=== PATIENT | female | born 1980 | race Caucasian/White ===

== ENCOUNTER 2016-07-22 15:20 | Inpatient (IN) | payer OTHER ==
[2016-07-22 16:56] LABS: Hematocrit 37 % (35-47); Hemoglobin 12.2 g/dl (12.0-16.0); Mean Corpuscular HGB Conc 33 g/dl (31-36); Mean Corpuscular Hemoglobin 28 pg (27-31); Mean Corpuscular Volume 86 fL (80-97); Mean Platelet Volume 9 um3 (7.4-10.4); Red Blood Count 4.32 10^6/ul (4.0-5.4); Red Cell Distribution Width 14 % (10.5-15); White Blood Count 15.1 10^3/ul (3.5-10.8)
[2016-07-22 17:01] LABS: Add Diff/Slide Review? Slide Review Added; Comments Flag Yes
[2016-07-22 17:11] LABS: Albumin 3.3 g/dL (3.2-5.2); BUN/Creatinine Ratio 13.6 (8-20); Calcium 8.8 mg/dL (8.6-10.3); EGFR African American 129.6 (>60); EGFR Non-African American 100.8 (>60); Globulin 2.9 g/dL (2-4); Total Bilirubin 0.4 mg/dL (0.2-1.0); Total Protein 6.2 g/dL (6.4-8.9); Uric Acid 4.3 mg/dL (2.3-6.6)
[2016-07-22 17:19] LABS: Potassium 3.7 mmol/L (3.5-5.0)
[2016-07-22] MEDS ORDERED: Misoprostol TAB* 100 MCG VAGINAL ONE (17:50)
[2016-07-22] MEDS ORDERED: Misoprostol TAB* 100 MCG ONE (22:03)
[2016-07-22] MEDS ORDERED: Misoprostol TAB* 100 MCG PO ONE (22:04)
[2016-07-23] MEDS ORDERED: Oxytocin in LR* 20 UNITS/1,000 ML BAG IVPB ONE (12:02)
[2016-07-23] MEDS ORDERED: Oxytocin in LR* 20 UNITS/1,000 ML BAG IVPB SCH ×2 (13:00→18:00)
[2016-07-23] MEDS ORDERED: OBEPIDURAL* 250 ML ONE (14:32)
[2016-07-23] MEDS ORDERED: Calcium Carbonate CHEW TAB* 500 MG (TUMS) PO PRN (15:40)
[2016-07-23] MEDS ORDERED: Calcium Carbonate CHEW TAB* 500 MG (TUMS) ONE (15:44)
[2016-07-23] MEDS ORDERED: Sodium Citrate/Citric Acid* 15 ML UDC PO PRN (15:48)
[2016-07-23] MEDS ORDERED: Famotidine TAB* 20 MG PO PRN (15:48)
[2016-07-23] MEDS ORDERED: Phenylephrine IV* 40 MCG/ML 10 ML SYRINGE IV PUSH PRN (15:48)
[2016-07-23] MEDS ORDERED: OBEPIDURAL* 250 ML EPIDURAL SCH (16:00)
[2016-07-23] MEDS ORDERED: Witch Hazel PAD* JAR TOPICAL PRN (17:16)
[2016-07-23] MEDS ORDERED: oxyCODONE/Acetamin 5/325 MG* TAB PO PRN (17:16)
[2016-07-23] MEDS ORDERED: Ibuprofen TAB* 600 MG PO PRN (17:16)
[2016-07-23] MEDS ORDERED: Dibucaine 1% 28.35 GM TUBE PR PRN (17:16)
[2016-07-23] MEDS ORDERED: Acetaminophen TAB* 325 MG PO PRN (17:16)
[2016-07-23] MEDS: Docusate CAP* 100 MG PO SCH (21:20)
[2016-07-24 06:37] LABS: Hematocrit 35 % (35-47); Hemoglobin 11.4 g/dl (12.0-16.0); Mean Corpuscular HGB Conc 33 g/dl (31-36); Mean Corpuscular Hemoglobin 29 pg (27-31); Mean Corpuscular Volume 87 fL (80-97); Mean Platelet Volume 9 um3 (7.4-10.4); Red Blood Count 3.98 10^6/ul (4.0-5.4); Red Cell Distribution Width 14 % (10.5-15)
[2016-07-24 06:38] LABS: Add Diff/Slide Review? Slide Review Added; Comments Flag Yes
[2016-07-24] MEDS: Docusate CAP* 100 MG PO SCH ×2 (08:47→13:31)
[2016-07-24] MEDS ORDERED: Ferrous Gluconate TAB* 324 MG TAB PO SCH (09:00)
[2016-07-24 14:30] VITALS: BP 127/75
== END 2016-07-24 17:55 | disposition home or self-care (01) | DRG 775 ==
LOC: MCHOBOUT 15:20 → MCHOB 15:24
PROVIDERS: ADMIT Midwife; ATTEND Nurse Practitioner
PROC: 10E0XZZ Delivery of Products of Conception, External Approach (ICD-10-PCS; principal; 2016-07-23)
PROC: 0HQ9XZZ Repair Perineum Skin, External Approach (ICD-10-PCS; 2016-07-23)
PROC: 3E033VJ Introduction of Other Hormone into Peripheral Vein, Percutaneous Approach (ICD-10-PCS; 2016-07-23)
PROC: 10907ZC Drainage of Amniotic Fluid, Therapeutic from Products of Conception, Via Natural or Artificial Opening (ICD-10-PCS; 2016-07-23)
DX: O48.0 Post-term pregnancy (principal); O09.523 Supervision of elderly multigravida, third trimester; O70.0 First degree perineal laceration during delivery; O13.4 Gestational [pregnancy-induced] hypertension without significant proteinuria, complicating childbirth; O69.81X0 Labor and delivery complicated by cord around neck, without compression, not applicable or unspecified; Z3A.41 41 weeks gestation of pregnancy; Z37.0 Single live birth
CPT/HCPCS: 36415; 76815; 80053; 81002; 84550; 85025; 86850; 86900; 86901; A9270-GY; S0191